=== PATIENT | male | born 1995 | race Caucasian/White ===

== ENCOUNTER 2017-11-05 19:04 | Emergency (ER) | payer OTHER ==
[~2017-11-05] VITALS: Ht 180.3 cm; Wt 69.2 kg
[2017-11-05 19:13] VITALS: TEMP 36.6; Ht 180.3 cm; Wt 69.2 kg
[2017-11-05 21:05] LABS: BASO % 0.1 %; BASO ABS # 0.01 K/uL (0-0.2); EOS % 1.8 %; EOS ABS # 0.13 K/uL (0-0.5); HEMATOCRIT 43.6 % (42-52); HEMOGLOBIN 15.8 g/dL (14.0-18.0); IG# 0.01 K/uL (0.00-0.02); LYMPH % 35.4 %; LYMPH ABS # 2.55 K/uL (1.2-3.4); MEAN CELL VOLUME 84.7 fL (80-100); MEAN CORPUSCULAR HEMOGLOBIN 30.7 pg (25-34); MEAN CORPUSCULAR HGB CONC 36.2 g/dl (32-36); MEAN PLATELET VOLUME 10.1 fL (7.4-10.4); MONO % 8.2 %; MONO ABS # 0.59 K/uL (0.11-0.59); NEUT % 54.4 %; NEUT ABS # 3.92 K/uL (1.4-6.5); PLATELET COUNT 272 K/uL (130-400); WHITE BLOOD COUNT 7.21 K/uL (4.8-10.8)
[2017-11-05 21:31] LABS: ALBUMIN 4.2 gm/dl (3.4-5.0); CALCIUM 8.8 mg/dl (8.5-10.1); CREATININE 1.02 mg/dl (0.60-1.40); POTASSIUM 3.7 mmol/L (3.5-5.1)
[2017-11-05 21:34] LABS: TOTAL PROTEIN 7.6 gm/dl (6.4-8.2)
[2017-11-05] MEDS ORDERED: OPTIRAY 320 IV PRN (21:45)
--- NOTE | 2017-11-05 22:37 | DIAGNOSTIC IMAGING REPORT ---
CT OF THE ABDOMEN AND PELVIS WITH CONTRAST CLINICAL HISTORY: Right lower quadrant abdominal pain. COMPARISON STUDY: None. TECHNIQUE: Following IV administration of 115 mL of Optiray-320, axial images of the abdomen and pelvis were obtained from the lung bases to the proximal femurs. Images were reviewed in the axial, sagittal, and coronal planes. IV contrast was administered without complication. A dose lowering technique was utilized adhering to the principles of ALARA. CT DOSE: 266.52 mGy.cm FINDINGS: The liver, spleen, adrenal glands, kidneys and pancreas are unremarkable. There is no biliary ductal dilatation status post cholecystectomy. There is no evidence for a bowel obstruction. The appendix is not definitively identified on this exam. There is no right lower quadrant inflammation. No pneumatosis, free air or portal venous gas is present. There is no hydronephrosis. No suspicious osseous lesions are present. IMPRESSION: 1. No acute process within the abdomen or pelvis. 2. Nonvisualization of the appendix but no right lower quadrant inflammation. Close clinical follow-up is recommended given nonvisualization of the appendix. Electronically signed by: Robert Rosales M.D. 11/05/2017 10:36 PM Dictated Date/Time: 11/05/2017 10:30 PM
[2017-11-05] MEDS ORDERED: AMPH20CA3 PO (23:20)
[2017-11-05 23:30] VITALS: BP 127/82; PULSE 78; O2SAT 98
--- NOTE | 2017-11-06 00:27 | EMERGENCY ROOM VISIT NOTE ---
History Report prepared by Jamel: [place] Under the Supervision of: Dr. Rock Tolbert M.D. First contact with patient: 20:24 Chief Complaint: ABDOMINAL PAIN Stated Complaint: ABDOMINAL PAIN History of Present Illness The patient is a 22 year old male who presents to the Emergency Room after referral from [facility] with complaints of worsening abdominal pain that he has been experiencing for the past week. The patient states that he has been having "really bad" pain in his abdomen, and has noticed some "dark red" and "bright red" blood in his stools. He has also noticed some dark stools. The patient notes that he has not had his normal appetite and has been losing weight. The patient has a history of cholecystectomy and states that he has been having issues since this procedure. He denies any pain in the testicles or pain with urination. The patient does not drink alcohol frequently. No binge drinking. Source of History: patient Onset: 1 week ERP IMPLEMENTATION CONSULTANT Position: abdomen Symptom Intensity: "really really bad" Timing: worsening Associated Symptoms: + melena Note: Patient has noticed dark/bright red blood in the stool Review of Systems See HPI for pertinent positives and negatives. A total of ten systems were reviewed and were otherwise negative. Past Medical & Surgical Hx of Cholecystectomy Social History Smoking Status: Never Smoker Alcohol Use: none Drug Use: none Current/Historical Medications Scheduled Amphetamine-Dextroamphetamine 20MG (Adderall Xr 20MG), 20 MG PO DAILY Allergies Uncoded Allergies: SULFA (Allergy, Intermediate, rash, 11/05/17) Physical Exam Vital Signs Date Time Temp Pulse Resp B/P (MAP) Pulse Ox O2 Delivery O2 Flow Rate FiO2 11/05/17 23:30 78 16 127/82 98 11/05/17 23:03 78 16 127/82 98 Room Air 11/05/17 22:28 72 16 130/66 99 Room Air 11/05/17 20:56 83 16 139/78 99 Room Air 11/05/17 19:13 36.6 96 14 149/80 98 Room Air Physical Exam Physical Exam GENERAL: He is oriented to person, place, and time. He appears well-developed and well-nourished. He does not appear distressed. ____ HENT: Exam performed. Head: Normocephalic and atraumatic. Right Ear: External ear normal. No mastoid tenderness. Left Ear: External ear normal. No mastoid tenderness. Mouth/Throat: The oropharynx is clear and moist. No trismus in the jaw. No dental abscesses or uvula swelling. No oropharyngeal exudate or tonsillar abscesses. ____ EYES: Conjunctivae and EOM are normal. Pupils are equal, round, and reactive to light. Right eye exhibits no discharge. Left eye exhibits no discharge. No scleral icterus. ____ NECK: Normal range of motion. Neck supple. No JVD present. No spinous process tenderness present. No carotid bruit present. No rigidity. No tracheal deviation and normal range of motion present. No Brudzinski's sign and no Kernig 's sign noted. ____ CV: Normal rate, regular rhythm, normal heart sounds and intact distal pulses. There is no peripheral edema. Palpable radial pulses bue. ____ PULM/CHEST: Effort normal and breath sounds normal. No respiratory distress. No stridor. He has no wheezes. He has no rales. Chest Wall: He exhibits no tenderness. ____ ABD: The abdomen is soft. Bowel sounds are normal. He has no distension. No mass is present. There pain on palpation of the epigastric and RLQ. There is no rebound, no guarding, no Esquivel's sign and Rovsig negative MUSC/SKEL: Normal range of motion. There is no peripheral edema, tenderness or deformity. LYMPH: No cervical adenopathy. ____ NEURO: He is alert and oriented to person, place, and time. He has normal strength. No cranial nerve deficit or sensory deficit. Coordination and gait normal. GCS eye subscore is 4. GCS verbal subscore is 5. GCS motor subscore is 6. Cerebellar tests wnl. ____ SKIN: Skin is warm and dry. He is not diaphoretic. ____ PSYCH: He has a normal mood and affect. His behavior is normal. Judgment and thought content normal. ____ RECTAL: Hemoccult negative, no bright red blood per rectum. Medical Decision & Procedures ER Provider Diagnostic Interpretation: Radiology results as stated below per my review and radiologist interpretation: CT OF THE ABDOMEN AND PELVIS WITH CONTRAST CLINICAL HISTORY: Right lower quadrant abdominal pain. COMPARISON STUDY: None. TECHNIQUE: Following IV administration of 115 mL of Optiray-320, axial images of the abdomen and pelvis were obtained from the lung bases to the proximal femurs. Images were reviewed in the axial, sagittal, and coronal planes. IV contrast was administered without complication. A dose lowering technique was utilized adhering to the principles of ALARA. CT DOSE: 266.52 mGy.cm FINDINGS: The liver, spleen, adrenal glands, kidneys and pancreas are unremarkable. There is no biliary ductal dilatation status post cholecystectomy. There is no evidence for a bowel obstruction. The appendix is not definitively identified on this exam. There is no right lower quadrant inflammation. No pneumatosis, free air or portal venous gas is present. There is no hydronephrosis. No suspicious osseous lesions are present. IMPRESSION: 1. No acute process within the abdomen or pelvis. 2. Nonvisualization of the appendix but no right lower quadrant inflammation. Close clinical follow-up is recommended given nonvisualization of the appendix. Electronically signed by: Robert Rosales M.D. 11/05/2017 10:36 PM Dictated Date/Time: 11/05/2017 10:30 PM Laboratory Results 11/05/17 20:48 Red Blood Count 5.15, Mean Corpuscular Volume 84.7, Mean Corpuscular Hemoglobin 30.7, Mean Corpuscular Hemoglobin Concent 36.2, Mean Platelet Volume 10.1, Neutrophils (%) (Auto) 54.4, Lymphocytes (%) (Auto) 35.4, Monocytes (%) (Auto) 8.2, Eosinophils (%) (Auto) 1.8, Basophils (%) (Auto) 0.1, Neutrophils # (Auto) 3.92, Lymphocytes # (Auto) 2.55, Monocytes # (Auto) 0.59, Eosinophils # (Auto) 0.13, Basophils # (Auto) 0.01 11/05/17 20:48 Test 11/05/17 20:45 11/05/17 20:48 Urine Color YELLOW Urine Appearance CLEAR (CLEAR) Urine pH 6.5 (4.5-7.5) Urine Specific [place] 1.012 (1.000-1.030) Urine Protein NEG (NEG) Urine Glucose (UA) NEG (NEG) Urine Ketones NEG (NEG) Urine Occult Blood NEG (NEG) Urine Nitrite NEG (NEG) Urine Bilirubin NEG (NEG) Urine Urobilinogen NEG (NEG) Urine Leukocyte Esterase NEG (NEG) White Blood Count 7.21 K/uL (4.8-10.8) Red Blood Count 5.15 M/uL (4.7-6.1) Hemoglobin 15.8 g/dL (14.0-18.0) Hematocrit 43.6 % (42-52) Mean Corpuscular Volume 84.7 fL (80-100) Mean Corpuscular Hemoglobin 30.7 pg (25-34) Mean Corpuscular Hemoglobin Concent 36.2 g/dl (32-36) Platelet Count 272 K/uL (130-400) Mean Platelet Volume 10.1 fL (7.4-10.4) Neutrophils (%) (Auto) 54.4 % Lymphocytes (%) (Auto) 35.4 % Monocytes (%) (Auto) 8.2 % Eosinophils (%) (Auto) 1.8 % Basophils (%) (Auto) 0.1 % Neutrophils # (Auto) 3.92 K/uL (1.4-6.5) Lymphocytes # (Auto) 2.55 K/uL (1.2-3.4) Monocytes # (Auto) 0.59 K/uL (0.11-0.59) Eosinophils # (Auto) 0.13 K/uL (0-0.5) Basophils # (Auto) 0.01 K/uL (0-0.2) RDW Standard Deviation 37.0 fL (36.4-46.3) RDW Coefficient of Variation 12.0 % (11.5-14.5) Immature Granulocyte % (Auto) 0.1 % Immature Granulocyte # (Auto) 0.01 K/uL (0.00-0.02) Anion Gap 5.0 mmol/L (3-11) Est Creatinine Clear Calc Drug Dose 110.2 ml/min Estimated GFR () 119.5 Estimated GFR (Non- 103.1 BUN/Creatinine Ratio 10.6 (10-20) Calcium Level 8.8 mg/dl (8.5-10.1) Total Bilirubin 0.7 mg/dl (0.2-1) Direct Bilirubin 0.2 mg/dl (0-0.2) Aspartate Amino Transf (AST/SGOT) 23 U/L (15-37) Alanine Aminotransferase (ALT/SGPT) 30 U/L (12-78) Alkaline Phosphatase 74 U/L (45-117) Total Protein 7.6 gm/dl (6.4-8.2) Albumin 4.2 gm/dl (3.4-5.0) Lipase 199 U/L (73-393) Laboratory results reviewed by me ED Course 2028: The patient was evaluated in room B9. A complete history and physical exam was performed. 2320: I updated the patient. Vitals signs are stable, serial abdominal exams were performed and show no tenderness on palpation. Labs are within normal limits. CT of the abdomen does not show appendix being visualized, however the imaging does not show any inflammatory changes in the RLQ. Given no inflammatory changes as well as improved serial abdominal exam and no leukocytosis, appendicitis was deemed very unlikely. Will follow-up with PCP and GI. DISCHARGE - Plan of care discussed with patient and questions answered. The patient was given both verbal and printed discharge instructions. The patient verbalized understanding and ability to comply. The patient is to seek outpatient follow up as noted in the discharge instructions. The patient verbalized understanding and ability to comply. The patient is discharged in stable condition. The patient was instructed to return for worsening symptoms. Medical Decision Vitals signs are stable, serial abdominal exams were performed and show no tenderness on palpation. Labs are within normal limits. CT of the abdomen does not show appendix being visualized, however the imaging does not show any inflammatory changes in the RLQ. Given no inflammatory changes as well as improved serial abdominal exam and no leukocytosis, appendicitis was deemed very unlikely. Will follow-up with PCP and GI. DISCHARGE - Plan of care discussed with patient and questions answered. The patient was given both verbal and printed discharge instructions. The patient verbalized understanding and ability to comply. The patient is to seek outpatient follow up as noted in the discharge instructions. The patient verbalized understanding and ability to comply. The patient is discharged in stable condition. The patient was instructed to return for worsening symptoms. Medication Reconcilliation Current Medication List: was personally reviewed by me Blood Pressure Screening Patient's blood pressure: Normal blood pressure Impression Primary Impression: Abdominal pain Scribe Attestation The scribe's documentation has been prepared under my direction and personally reviewed by me in its entirety. I confirm that the note above accurately reflects all work, treatment, procedures, and medical decision making performed by me. The chart was completed utilizing Dragon Speech voice recognition software. Grammatical errors, random word insertions, pronoun errors, and incomplete sentences are an occasional consequence of this system due to software limitations, ambient noise, and hardware issues. Any formal questions or concerns about the content, text, or information contained within the body of this dictation should be directly addressed to the physician for clarification. Departure Information Dispostion Home / Self-Care Referrals No Doctor, Assigned (PCP) Forms HOME CARE DOCUMENTATION FORM, IMPORTANT VISIT INFORMATION Patient Instructions [facility] Additional Instructions Return to the emergency department if you develop fever greater than 100.4, blood in your stool, blood in her vomit, dark black stools, increased and worsening abdominal pain. Problem Qualifiers Primary Impression: Abdominal pain Abdominal location: unspecified location Qualified Codes: R10.9 - Unspecified abdominal pain
== END 2017-11-05 23:26 | disposition home or self-care (01) ==
LOC: C.EDB 19:06
DX: R10.13 Epigastric pain (principal); R10.11 Right upper quadrant pain; K92.1 Melena; R63.0 Anorexia; R63.4 Abnormal weight loss; Z90.49 Acquired absence of other specified parts of digestive tract; Z88.2 Allergy status to sulfonamides

== ENCOUNTER → 2017-11-30 | Outpatient (CLI) | payer OTHER ==
[~2017-11-30] MED LIST: AMPH20CA3 PO; DICY20TA10 PO; FEXO1TAB49 PO; PANT40TA PO; VNTHFA/IN INH
--- NOTE | 2017-11-30 09:19 | DIAGNOSTIC IMAGING REPORT ---
ABDOMINAL ULTRASOUND, RIGHT UPPER QUADRANT HISTORY: Right upper quadrant abdominal pain.. COMPARISON: CT of the abdomen and pelvis November 05, 2017. FINDINGS: Liver is sonographically normal. There is no biliary ductal dilatation status post cholecystectomy. The common bile duct measures 3 mm in caliber. The pancreas is within normal limits. There is no right hydronephrosis. IMPRESSION: No significant abnormality identified within the right upper quadrant status post cholecystectomy. Electronically signed by: Robert Rosales M.D. 11/30/2017 9:17 AM Dictated Date/Time: 11/30/2017 9:16 AM
[2017-11-30 10:15] LABS: BASO % 0.2 %; BASO ABS # 0.01 K/uL (0-0.2); EOS % 3.9 %; EOS ABS # 0.18 K/uL (0-0.5); HEMATOCRIT 44.7 % (42-52); HEMOGLOBIN 16.2 g/dL (14.0-18.0); LYMPH % 38.4 %; LYMPH ABS # 1.79 K/uL (1.2-3.4); MEAN CELL VOLUME 85.6 fL (80-100); MEAN CORPUSCULAR HGB CONC 36.2 g/dl (32-36); MEAN PLATELET VOLUME 10.4 fL (7.4-10.4); MONO % 11.6 %; MONO ABS # 0.54 K/uL (0.11-0.59); NEUT % 45.9 %; NEUT ABS # 2.14 K/uL (1.4-6.5); PLATELET COUNT 230 K/uL (130-400); RED CELL DISTRIBUTION WIDTH CV 12.6 % (11.5-14.5); RED CELL DISTRIBUTION WIDTH SD 39.9 fL (36.4-46.3); WHITE BLOOD COUNT 4.66 K/uL (4.8-10.8)
[2017-11-30 10:44] LABS: ALBUMIN 4.1 gm/dl (3.4-5.0); ALT/SGPT 33 U/L (12-78); AST/SGOT 19 U/L (15-37); BLOOD UREA NITROGEN 10 mg/dl (7-18); CALCIUM 9.2 mg/dl (8.5-10.1); CARBON DIOXIDE 30 mmol/L (21-32); CREATININE 1.07 mg/dl (0.60-1.40); GLUCOSE 82 mg/dl (70-99); LIPASE 241 U/L (73-393); POTASSIUM 4.2 mmol/L (3.5-5.1); SODIUM 144 mmol/L (136-145)
[2017-11-30 10:55] LABS: ALKALINE PHOSPHATASE 64 U/L (45-117); TOTAL PROTEIN 7.4 gm/dl (6.4-8.2)
== END | disposition home or self-care (01) ==
LOC: C.ULTR 08:49
PROVIDERS: ATTEND Registered Nurse
DX: R63.4 Abnormal weight loss (principal); R11.0 Nausea; R10.11 Right upper quadrant pain

== ENCOUNTER → 2017-12-10 | Day surgery (SDC) | payer OTHER ==
[2017-12-03 14:33] VITALS: BMI 19.0
[~2017-12-10] VITALS: Ht 180.3 cm; Wt 63.6 kg
[~2017-12-10] MED LIST changes: +FLUT0.15; +LIDOCAINE HCL 2% 2 ML VIAL (20MG/ML) ONE; +PROPOFOL IV EMULSION 10 MG/ML 20 ML VIAL ONE; +SODIUM CHLORIDE 0.9% 500ML 500 ML IV ONE
[2017-12-10 13:12] VITALS: Ht 180.3 cm; Wt 63.6 kg
--- NOTE | 2017-12-10 13:22 | Endo History and Physical ---
History & Physical Date of Service: December 10, 2017. Chief Complaint: Weight loss Referring Physician: Dr. 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 Past Surgical History Hx Cardiac Surgery: No Hx Internal Defibrillator: No Hx Pacemaker: No Hx Abdominal Surgery: Yes (ARNAUD) Hx of Implantable Prosthesis: No Hx Post-Op Nausea and Vomiting: No Hx Cancer Surgery: No Hx Thoracic Surgery: No Hx Orthopedic: No (RT LABRUM REPAIR) Hx Urinary Tract Surgery: No Family History Colon CA Social History Smoking Status: Never Smoker Hx Substance Use: No Hx Alcohol Use: No Allergies Coded Allergies: Sulfa Antibiotics (Verified Allergy, Unknown, RASH, 12/10/17) Current Medications Reported Home Medications Medications Dose Route/Sig Max Daily Dose Days Date Category Flonase Allergy Relief (Fluticasone Propionate (Nasal)) 50 Mcg/Act Spr NA HS 12/10/17 Reported Ventolin Hfa (Albuterol) 200 Puffs/58415 Mcg Aers 2-4 Puffs INH Q6H PRN 12/03/17 Reported Dicyclomine Hcl 20 Mg Tab 1 Tab PO BID PRN 12/03/17 Reported Donita Allergy (Fexofenadine Hcl) 180 Mg Tab 1 Tab PO HS 12/03/17 Reported Protonix (Pantoprazole Sodium) 40 Mg Tab 40 Mg PO QAM 12/03/17 Reported Adderall Xr 20MG (Amphetamine-Dextroamphetamine 20MG) 1 Cap Cap 20 Mg PO QAM 11/05/17 Reported Vital Signs Weight (Kilograms): 63.64 Height (Feet): 5 Height (Inches): 11 Physical Exam General Appearance: WD/WN, no apparent distress Respiratory/Chest: Auscultation: breath sounds normal Cardiovascular: Heart Auscultation: RRR Abdomen: Bowel Sounds: normal Inspection & Palpation: soft, non-distended, no tenderness, guarding & rebound Assessment and Plan Assessment: 22 yo Cm who presents for colonoscopy secondary to weight loss. Plan: Proceed with colonoscopy.
--- NOTE | 2017-12-10 14:15 | Discharge Instructions ---
Endoscopy Patient Instructions Date / Procedure(s) Performed December 10, 2017. Colonoscopy Allergy Information Coded Allergies: Sulfa Antibiotics (Verified Allergy, Unknown, RASH, 12/10/17) Discharge Date / Findings December 10, 2017. Colon polyp Medication Instructions OK to resume all medications today as prescribed Reported Home Medications Medications Dose Route/Sig Max Daily Dose Days Date Category Flonase Allergy Relief (Fluticasone Propionate (Nasal)) 50 Mcg/Act Spr NA HS 12/10/17 Reported Ventolin Hfa (Albuterol) 200 Puffs/04076 Mcg Aers 2-4 Puffs INH Q6H PRN 12/03/17 Reported Dicyclomine Hcl 20 Mg Tab 1 Tab PO BID PRN 12/03/17 Reported Donita Allergy (Fexofenadine Hcl) 180 Mg Tab 1 Tab PO HS 12/03/17 Reported Protonix (Pantoprazole Sodium) 40 Mg Tab 40 Mg PO QAM 12/03/17 Reported Adderall Xr 20MG (Amphetamine-Dextroamphetamine 20MG) 1 Cap Cap 20 Mg PO QAM 11/05/17 Reported Provider Instructions Activity Restrictions - No exercising or heavy lifting for 24 hours. - Do not drink alcohol the day of the procedure. - Do not drive a car or operate machinery until the day after the procedure. - Do not make any important decisions or sign important papers in 24 hours after the procedure. Following Day: - Return to full activity which may include returning to work/school. Diet Start your diet with liquids and light foods (jello, soup, juice, toast). Then eat your usual diet if not nauseated. Treatment For Common After Affects For mild abdominal pain, bloating, or excessive gas: - Rest - Eat lightly - Lie on right side Follow-Up Information Follow-up with WOODY MILLER as scheduled Anesthesia Information What You Should Know You have had a procedure that required some medicine to reduce anxiety and discomfort. This treatment is called moderate sedation. After receiving the treatment, you may be sleepy, but you will be able to breathe on your own. The effects of the treatment may last for several hours. Follow these instructions along with Activity/Diet recommendations noted above: * Do NOT do anything where dizziness or clumsiness would be dangerous. * Rest quietly at home today, then you can be up and about tomorrow. * Have a responsible person stay with you the rest of today. * You may have had an I.V. today. If so, you may take the dressing off later today. Recommendations Call your doctor if: * Trouble breathing * Continuous vomiting for more than 24 hours * Temperature above 101 degrees * Severe abdominal pain or bloating * Pain not relieved by pain medicine ordered * There is increased drainage or redness from any incision * A large amount of rectal bleeding greater than 2-3 tablespoons. (If you had a polyp/s removed or have hemorrhoids, a small amount of blood - from the rectum is to be expected.) * You have any unanswered questions or concerns. IN THE EVENT OF A SERIOUS EMERGENCY, GO TO THE NEAREST EMERGENCY ROOM Your discharge instructions were prepared by provider Zain Barros. Patient Instructions Signature Page Barber Reese Patient (or Guardian) Signature/Date: I have read and understand the instructions given to me by my caregivers. Caregiver/RN/Doctor Signature/Date: The above-named patient and/or guardian has received patient instructions on this date. + Original Patient Signature Page (only) stays with chart. Please make copy for patient.
[2017-12-10 14:40] VITALS: BP 109/60; PULSE 65; O2SAT 100
--- NOTE | 2017-12-10 14:52 | Anesthesiology Progress Note ---
Anesthesia Post Op Note Date & Time December 10, 2017 at 14:51 Vital Signs Pain Intensity: 0 Vital Signs Past 12 Hours Date Time Temp Pulse Resp B/P (MAP) Pulse Ox O2 Delivery O2 Flow Rate FiO2 12/10/17 14:25 55 18 101/61 (74) 99 Room Air 12/10/17 14:10 58 18 113/55 (74) 99 Room Air 12/10/17 13:26 36.5 57 16 127/78 (94) 96 Room Air Notes Mental Status: alert / awake / arousable, participated in evaluation Pt Amnestic to Procedure: Yes Nausea / Vomiting: adequately controlled Pain: adequately controlled Airway Patency, RR, SpO2: stable & adequate BP & HR: stable & adequate Hydration State: stable & adequate Anesthetic Complications: no major complications apparent
--- NOTE | 2017-12-10 15:46 | GI REPORT ---
Patient Name: Barber Reese Procedure Date: 12/10/2017 1:35 PM Date of : 1995 Admit Type: Outpatient Age: 22 Gender: Male Attending MD: Zain Barros DO Procedure: Colonoscopy Providers: Zain Barros DO Referring MD: EARLENE MILLER Indications: Weight loss Medicines: Monitored Anesthesia Care Complications: No immediate complications. Estimated Blood Loss: Estimated blood loss: none. Procedure: Pre-Anesthesia Assessment: - Prior to the procedure, a History and Physical was performed, and patient medications and allergies were reviewed. The patient's tolerance of previous anesthesia was also reviewed. The risks and benefits of the procedure and the sedation options and risks were discussed with the patient. All questions were answered, and informed consent was obtained. Prior Anticoagulants: The patient has taken no previous anticoagulant or antiplatelet agents. ASA Grade Assessment: II - A patient with mild systemic disease. After reviewing the risks and benefits, the patient was deemed in satisfactory condition to undergo the procedure. After I obtained informed consent, the scope was passed under direct vision. Throughout the procedure, the patient's blood pressure, pulse, and oxygen saturations were monitored continuously. The scope was introduced through the anus and advanced to the terminal ileum. The colonoscopy was performed without difficulty. The patient tolerated the procedure well. The quality of the bowel preparation was good. The terminal ileum, ileocecal valve, appendiceal orifice, and rectum were photographed. Findings: The perianal and digital rectal examinations were normal. A 10 mm polyp was found in the cecum. The polyp was flat. The polyp was removed with a hot snare. Resection and retrieval were complete. To prevent bleeding after the polypectomy, three hemostatic clips were successfully placed (MR conditional). There was no bleeding at the end of the procedure. The exam was otherwise without abnormality. Impression: - One 10 mm polyp in the cecum, removed with a hot snare. Resected and retrieved. Clips (MR conditional) were placed. - The examination was otherwise normal. Recommendation: - Resume previous diet. - Continue present medications. - Repeat colonoscopy for surveillance based on pathology results. - Return to primary care physician as previously scheduled. Zain Barros DO 12/10/2017 2:17:46 PM This report has been signed electronically. Note Initiated On: 12/10/2017 1:35 PM Number of Addenda: 0 I attest to the content of the Intraoperative Record and orders documented therein, exceptions below {[id number]}
== END | disposition home or self-care (01) ==
LOC: C.GI 13:00
PROVIDERS: ATTEND Internal Medicine
DX: R63.4 Abnormal weight loss (principal); D12.0 Benign neoplasm of cecum; J45.909 Unspecified asthma, uncomplicated; K21.9 Gastro-esophageal reflux disease without esophagitis; Z79.899 Other long term (current) drug therapy; Z88.2 Allergy status to sulfonamides; Z80.0 Family history of malignant neoplasm of digestive organs

== ENCOUNTER → 2017-12-13 | Day surgery (SDC) | payer OTHER ==
[2017-12-03 14:42] VITALS: Ht 180.3 cm; Wt 63.6 kg
[~2017-12-13] VITALS: Ht 180.3 cm; Wt 63.6 kg
[~2017-12-13] MED LIST changes: +FENTANYL CITRATE INJ 50 MCG/1 ML 2 ML VIAL ONE
--- NOTE | 2017-12-13 14:44 | Endo History and Physical ---
History & Physical Date of Service: December 13, 2017. 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 Past Surgical History Hx Cardiac Surgery: No Hx Internal Defibrillator: No Hx Pacemaker: No Hx Abdominal Surgery: Yes (ARNAUD) Hx of Implantable Prosthesis: No Hx Post-Op Nausea and Vomiting: No Hx Cancer Surgery: No Hx Thoracic Surgery: No Hx Orthopedic: No (RT LABRUM REPAIR) Hx Urinary Tract Surgery: No Family History Colon CA Social History Smoking Status: Never Smoker Hx Substance Use: No Hx Alcohol Use: No Allergies Coded Allergies: Sulfa Antibiotics (Verified Allergy, Unknown, RASH, 12/13/17) Current Medications Reported Home Medications Medications Dose Route/Sig Max Daily Dose Days Date Category Flonase Allergy Relief (Fluticasone Propionate (Nasal)) 50 Mcg/Act Spr NA HS 12/10/17 Reported Ventolin Hfa (Albuterol) 200 Puffs/41453 Mcg Aers 2-4 Puffs INH Q6H PRN 12/03/17 Reported Dicyclomine Hcl 20 Mg Tab 1 Tab PO BID PRN 12/03/17 Reported Donita Allergy (Fexofenadine Hcl) 180 Mg Tab 1 Tab PO HS 12/03/17 Reported Protonix (Pantoprazole Sodium) 40 Mg Tab 40 Mg PO QAM 12/03/17 Reported Adderall Xr 20MG (Amphetamine-Dextroamphetamine 20MG) 1 Cap Cap 20 Mg PO QAM 11/05/17 Reported Vital Signs Weight (Kilograms): 63.64 Height (Feet): 5 Height (Inches): 11 Date Time Temp Pulse Resp B/P (MAP) Pulse Ox O2 Delivery O2 Flow Rate FiO2 12/13/17 14:28 36.4 62 18 111/64 (80) 98 Room Air Physical Exam General Appearance: WD/WN, no apparent distress Respiratory/Chest: Auscultation: breath sounds normal Cardiovascular: Heart Auscultation: RRR Abdomen: Bowel Sounds: normal Inspection & Palpation: soft, non-distended, no tenderness, guarding & rebound Assessment and Plan Assessment: 22 yo CM who presents for EGD secondary to weight loss, abdominal pain and rectal bleeding. Plan: Proceed with EGD.
--- NOTE | 2017-12-13 15:18 | GI REPORT ---
Patient Name: Barber Reese Procedure Date: 12/13/2017 2:54 PM Date of : 1995 Admit Type: Outpatient Age: 22 Gender: Male Attending MD: Zain Barros DO Procedure: Upper GI endoscopy Providers: Zain Barros DO Referring MD: Ekaterina Beckham Indications: Epigastric abdominal pain, Hematochezia, Weight loss Medicines: Monitored Anesthesia Care Complications: No immediate complications. Estimated Blood Loss: Estimated blood loss: none. Procedure: Pre-Anesthesia Assessment: - Prior to the procedure, a History and Physical was performed, and patient medications and allergies were reviewed. The patient's tolerance of previous anesthesia was also reviewed. The risks and benefits of the procedure and the sedation options and risks were discussed with the patient. All questions were answered, and informed consent was obtained. Prior Anticoagulants: The patient has taken no previous anticoagulant or antiplatelet agents. ASA Grade Assessment: II - A patient with mild systemic disease. After reviewing the risks and benefits, the patient was deemed in satisfactory condition to undergo the procedure. After obtaining informed consent, the endoscope was passed under direct vision. Throughout the procedure, the patient's blood pressure, pulse, and oxygen saturations were monitored continuously. The scope was introduced through the anus and advanced to second part of duodenum. After obtaining informed consent, the endoscope was passed under direct vision. Throughout the procedure, the patient's blood pressure, pulse, and oxygen saturations were monitored continuously.The upper GI endoscopy was accomplished without difficulty. The patient tolerated the procedure well. Findings: The esophagus was normal. Localized moderate inflammation characterized by erythema was found in the gastric antrum. Biopsies were taken with a cold forceps for histology. The examined duodenum was normal. Biopsies for histology were taken with a cold forceps for evaluation of celiac disease. Impression: - Normal esophagus. - Gastritis. Biopsied. - Normal examined duodenum. Biopsied. Recommendation: - Resume previous diet. - Continue present medications. - Await pathology results. - Return to primary care physician as previously scheduled. Zain Barros DO 12/13/2017 3:18:00 PM This report has been signed electronically. Note Initiated On: 12/13/2017 2:54 PM Number of Addenda: 0 I attest to the content of the Intraoperative Record and orders documented therein, exceptions below {[id number]}
--- NOTE | 2017-12-13 15:20 | Discharge Instructions ---
Endoscopy Patient Instructions Date / Procedure(s) Performed December 13, 2017. EGD Allergy Information Coded Allergies: Sulfa Antibiotics (Verified Allergy, Unknown, RASH, 12/13/17) Discharge Date / Findings December 13, 2017. Gastritis s/p biopsies Duodenal biopsies Medication Instructions Stopped Medication(s): Protonix last taken on 12/06/17 Adderall XR last taken on 12/07/17 OK to resume all medications today as prescribed Reported Home Medications Medications Dose Route/Sig Max Daily Dose Days Date Category Flonase Allergy Relief (Fluticasone Propionate (Nasal)) 50 Mcg/Act Spr NA HS 12/10/17 Reported Ventolin Hfa (Albuterol) 200 Puffs/43056 Mcg Aers 2-4 Puffs INH Q6H PRN 12/03/17 Reported Dicyclomine Hcl 20 Mg Tab 1 Tab PO BID PRN 12/03/17 Reported Donita Allergy (Fexofenadine Hcl) 180 Mg Tab 1 Tab PO HS 12/03/17 Reported Protonix (Pantoprazole Sodium) 40 Mg Tab 40 Mg PO QAM 12/03/17 Reported Adderall Xr 20MG (Amphetamine-Dextroamphetamine 20MG) 1 Cap Cap 20 Mg PO QAM 11/05/17 Reported Provider Instructions Activity Restrictions - No exercising or heavy lifting for 24 hours. - Do not drink alcohol the day of the procedure. - Do not drive a car or operate machinery until the day after the procedure. - Do not make any important decisions or sign important papers in 24 hours after the procedure. Following Day: - Return to full activity which may include returning to work/school. Diet Start your diet with liquids and light foods (jello, soup, juice, toast). Then eat your usual diet if not nauseated. Treatment For Common After Affects For mild abdominal pain, bloating, or excessive gas: - Rest - Eat lightly - Lie on right side Follow-Up Information Follow-up with Jeannette Beckham as scheduled Anesthesia Information What You Should Know You have had a procedure that required some medicine to reduce anxiety and discomfort. This treatment is called moderate sedation. After receiving the treatment, you may be sleepy, but you will be able to breathe on your own. The effects of the treatment may last for several hours. Follow these instructions along with Activity/Diet recommendations noted above: * Do NOT do anything where dizziness or clumsiness would be dangerous. * Rest quietly at home today, then you can be up and about tomorrow. * Have a responsible person stay with you the rest of today. * You may have had an I.V. today. If so, you may take the dressing off later today. Recommendations Call your doctor if: * Trouble breathing * Continuous vomiting for more than 24 hours * Temperature above 101 degrees * Severe abdominal pain or bloating * Pain not relieved by pain medicine ordered * There is increased drainage or redness from any incision * A large amount of rectal bleeding greater than 2-3 tablespoons. (If you had a polyp/s removed or have hemorrhoids, a small amount of blood - from the rectum is to be expected.) * You have any unanswered questions or concerns. IN THE EVENT OF A SERIOUS EMERGENCY, GO TO THE NEAREST EMERGENCY ROOM Your discharge instructions were prepared by provider Zain Barros. Patient Instructions Signature Page Barber Reese Patient (or Guardian) Signature/Date: I have read and understand the instructions given to me by my caregivers. Caregiver/RN/Doctor Signature/Date: The above-named patient and/or guardian has received patient instructions on this date. + Original Patient Signature Page (only) stays with chart. Please make copy for patient.
--- NOTE | 2017-12-13 15:28 | Anesthesiology Progress Note ---
Anesthesia Post Op Note Date & Time December 13, 2017 at 15:28 Vital Signs Vital Signs Past 12 Hours Date Time Temp Pulse Resp B/P (MAP) Pulse Ox O2 Delivery O2 Flow Rate FiO2 12/13/17 15:18 66 12 116/55 (75) 97 Room Air 12/13/17 14:28 36.4 62 18 111/64 (80) 98 Room Air Notes Mental Status: alert / awake / arousable, participated in evaluation Pt Amnestic to Procedure: Yes Nausea / Vomiting: adequately controlled Pain: adequately controlled Airway Patency, RR, SpO2: stable & adequate BP & HR: stable & adequate Hydration State: stable & adequate Anesthetic Complications: no major complications apparent
[2017-12-13 15:47] VITALS: BP 113/68; PULSE 53; O2SAT 99
== END | disposition home or self-care (01) ==
LOC: C.GI 14:02
PROVIDERS: ATTEND Internal Medicine
DX: K29.50 Unspecified chronic gastritis without bleeding (principal); R63.4 Abnormal weight loss; J45.909 Unspecified asthma, uncomplicated; K21.9 Gastro-esophageal reflux disease without esophagitis; F17.220 Nicotine dependence, chewing tobacco, uncomplicated; Z88.2 Allergy status to sulfonamides; Z98.890 Other specified postprocedural states; Z79.899 Other long term (current) drug therapy; Z90.49 Acquired absence of other specified parts of digestive tract